=== PATIENT | female | born 1990 | race American Indian/Alaskan Native ===

== ENCOUNTER 2017-07-08 00:18 | Inpatient (IN) | payer OTHER ==
[2017-07-08] MEDS ORDERED: STADOL IV PRN (02:43)
[2017-07-08 03:05] LABS: Hematocrit 34.7 % (30.3-42.9); Hemoglobin 11.8 gm/dl (10.1-14.3); Mean Corpuscular HGB Conc 34 % (30-34); Mean Corpuscular Hemoglobin 31 pg (28-32); Mean Corpuscular Volume 91 fl (79-97); Platelet Count 251 K/mm3 (140-440); Red Blood Count 3.82 M/mm3 (3.65-5.03)
[2017-07-08] MEDS ORDERED: ePHEDrine SULFATE ONE (07:12)
--- NOTE | 2017-07-08 07:12 | Anesthesia Consultation ---
Anesthesia Consult and Med Hx Date of service: 07/08/17 - Airway Anesthetic Teeth Evaluation: Good ROM Head & Neck: Adequate Mental/Hyoid Distance: Adequate Mallampati Class: Class II Intubation Access Assessment: Probably Good - Pre-Operative Health Status ASA Pre-Surgery Classification: ASA2 - Pulmonary Hx Asthma: No COPD: No Hx Pneumonia: No - Cardiovascular System Hx Hypertension: No - Central Nervous System Hx Seizures: No Hx Psychiatric Problems: No - Endocrine Hx Renal Disease: No Hx End Stage Renal Disease: No Hx Hypothyroidism: No Hx Hyperthyroidism: No - Hematic Hx Anemia: No Hx Sickle Cell Disease: No - Other Systems Hx Alcohol Use: No
[2017-07-08] MEDS ORDERED: MARCAINE 0.5% INFILTRATI ONE (07:50)
[2017-07-08] MEDS ORDERED: NARCAN 2 MG/2 ML IV PRN (08:00)
[2017-07-08] MEDS ORDERED: ePHEDrine SULFATE IV PRN (08:00)
[2017-07-08] MEDS: fentaNYL-BUPIV 2 MCG/ML-0.125% 200 MCG/100 ML BAG EPIDURAL SCH ×2 (08:45→16:39)
--- NOTE | 2017-07-08 10:03 | History and Physical Report ---
History of Present Illness Date of examination: 07/08/17 Date of admission: 07/08/17 03:07 Chief complaint: Contractions History of present illness: 27 yo Fe UJNE 07/15/2017 (LMP) 39w 0d presents in spontaneous labor. A positive, Rubella unk, GBS Negative. Pt transfered care to [facility] at 29 wks 1 day from [facility]. care uneventful. 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 denies: smoking, alcohol abuse, prescription drug abuse, IV drug use - Obstetrical History Expected Date of Delivery: 07/15/17 Actual Gestation: 39 Week(s) 0 Day(s) : 2 Para: 0 Hx # Term Pregnancies: 0 Number of Pregnancies: 0 Spontaneous Abortions: 1 Induced : 0 Number of Living Children: 0 Medications and Allergies Allergies Allergy/AdvReac Type Severity Reaction Status Date / Time No Known Allergies Allergy Unverified 07/08/17 00:33 Active Meds: Active Medications Butorphanol Tartrate (Stadol) 2 mg IV Q2H PRN PRN Reason: Labor Pain Last Admin: 07/08/17 03:22 Dose: 2 mg Ephedrine Sulfate (Ephedrine Sulfate) 10 mg IV Q2M PRN PRN Reason: Hypotension Lactated Ringer's (Lactated Ringers) 1,000 mls @ 125 mls/hr IV DIRECT CAPO Fentanyl/Bupivacaine/Sodium Chlor (Fentanyl-Bupiv 2 Mcg/Ml-0.125%) 200 mcg in 100 mls @ 12 mls/hr EPIDURAL TITR CAPO; Protocol Last Admin: 07/08/17 08:45 Dose: 12 mls/hr Naloxone HCl (Narcan 2 Mg/2 Ml) 0.2 mg IV Q5M PRN PRN Reason: Respiratory sedation Review of Systems All systems: negative Cardiovascular: no chest pain, no shortness of breath Respiratory: no shortness of breath Breasts: normal Gastrointestinal: abdominal pain (contractions), no nausea, no vomiting, no diarrhea, no constipation Genitourinary: normal appearance, contractions (regular), no vaginal bleeding, no leakage of fluid, no genital sores Integumentary: no rash, no lesions - Vital Signs Vital signs: Vital Signs Pulse BP Pulse Ox 107 H 123/81 100 07/08/17 00:44 07/08/17 00:44 07/08/17 00:44 Temp Pulse Resp BP Pulse Ox 98.3 F 117 H 20 118/61 99 07/08/17 07:24 07/08/17 09:59 07/08/17 07:24 07/08/17 09:59 07/08/17 09:59 - Physical Exam Cardiovascular: Regular rate, Normal S1, Normal S2 Lungs: Positive: Clear to auscultation, Normal air movement Abdomen: Positive: normal appearance, soft, other (gravid) Genitourinary (Female): Positive: normal external genitalia, normal perenium Vulva: both: normal Vagina: Positive: normal moisture Uterus: Positive: enlarged (Gravid) Anus/Rectum: Positive: normal perianal skin. Negative: hemorrhoids Extremities: Positive: normal Deep Tendon Reflex Grade: Normal +2 - Obstetrical FHR: category 1 Uterine Contraction Monitor Mode: External Cervical Dilatation: 4 (per RN) Uterine Contraction Pattern: Regular Uterine Tone Measurement Phase: Resting Uterine Contraction Intensity: Moderate Results Result Diagrams: 07/08/17 02:50 Abnormal lab results 07/08/17 Range/Units 02:50 RDW 13.0 L (13.2-15.2) % All other labs normal. Assessment and Plan A: ; Term IUP at 39w0d Spontaneous labor Category 1 tracing GBS negative P: Admit to L&D MAy have IV pain med/epidural PRN Anticiapte
[2017-07-08] MEDS: LACTATED RINGERS 1,000 ML IV SCH ×2 (11:59→18:15)
--- NOTE | 2017-07-08 16:36 | Progress Note ---
Assessment and Plan A: ; Term IUP at 39w0d Spontaneous labor Category 1 tracing Comfortable with epidural GBS negative AROM; lg amt clear fluid P: Pitocin Augmentation Anticiapte Subjective - Subjective Date of service: 07/08/17 (16:14) Principal diagnosis: Term IUP, Spontaneous labor Interval history: 27 yo Fe JUNE 07/15/2017 (LMP) 39w 0d presents in spontaneous labor. A positive, Rubella unk, GBS Negative. Pt transfered care to [facility] at 29 wks 1 day from [facility]. care uneventful. Patient reports: movement normal, other (Comfortable with epidural), no new complaints, no vaginal bleeding Objective - Vital Signs Vital Signs: Vital Signs - 12hr 07/08/17 07/08/17 07/08/17 04:42 04:47 04:52 Temperature Pulse Rate 101 H 131 H 108 H Respiratory Rate Blood Pressure Blood Pressure [Right] O2 Sat by Pulse 97 98 98 Oximetry 07/08/17 07/08/17 07/08/17 04:57 05:02 05:07 Temperature Pulse Rate 112 H 111 H 126 H Respiratory Rate Blood Pressure Blood Pressure [Right] O2 Sat by Pulse 98 97 98 Oximetry 07/08/17 07/08/17 07/08/17 05:12 05:17 05:21 Temperature Pulse Rate 113 H 108 H 117 H Respiratory Rate Blood Pressure 155/88 Blood Pressure [Right] O2 Sat by Pulse 100 97 Oximetry 07/08/17 07/08/17 07/08/17 05:22 05:27 05:32 Temperature Pulse Rate 115 H 105 H 110 H Respiratory Rate Blood Pressure Blood Pressure [Right] O2 Sat by Pulse 97 97 97 Oximetry 07/08/17 07/08/17 07/08/17 05:37 05:42 05:47 Temperature Pulse Rate 131 H 122 H 116 H Respiratory Rate Blood Pressure Blood Pressure [Right] O2 Sat by Pulse 98 97 96 Oximetry 07/08/17 07/08/17 07/08/17 05:52 05:57 06:02 Temperature Pulse Rate 91 H 111 H 105 H Respiratory Rate Blood Pressure Blood Pressure [Right] O2 Sat by Pulse 97 97 97 Oximetry 07/08/17 07/08/17 07/08/17 06:07 06:12 06:17 Temperature Pulse Rate 126 H 105 H 123 H Respiratory Rate Blood Pressure Blood Pressure [Right] O2 Sat by Pulse 95 97 97 Oximetry 07/08/17 07/08/17 07/08/17 06:20 06:22 06:27 Temperature Pulse Rate 108 H 120 H 96 H Respiratory Rate Blood Pressure 140/79 Blood Pressure [Right] O2 Sat by Pulse 98 95 Oximetry 07/08/17 07/08/17 07/08/17 06:32 06:37 06:41 Temperature Pulse Rate 112 H 96 H 100 H Respiratory Rate Blood Pressure Blood Pressure [Right] O2 Sat by Pulse 98 97 98 Oximetry 07/08/17 07/08/17 07/08/17 06:47 06:52 06:55 Temperature Pulse Rate 96 H 99 H 98 H Respiratory Rate Blood Pressure Blood Pressure [Right] O2 Sat by Pulse 98 96 94 Oximetry 07/08/17 07/08/17 07/08/17 06:57 07:02 07:07 Temperature 98.7 F Pulse Rate 127 H 105 H 91 H Respiratory 18 Rate Blood Pressure Blood Pressure 140/52 [Right] O2 Sat by Pulse 95 98 96 Oximetry 07/08/17 07/08/17 07/08/17 07:12 07:19 07:21 Temperature Pulse Rate 102 H 94 H 110 H Respiratory Rate Blood Pressure 158/81 Blood Pressure [Right] O2 Sat by Pulse 95 98 Oximetry 07/08/17 07/08/17 07/08/17 07:24 07:29 07:34 Temperature 98.3 F Pulse Rate 98 H 100 H 95 H Respiratory 20 Rate Blood Pressure 133/67 Blood Pressure 133/67 [Right] O2 Sat by Pulse 97 97 96 Oximetry 07/08/17 07/08/17 07/08/17 07:39 07:44 07:49 Temperature Pulse Rate 106 H 119 H 124 H Respiratory Rate Blood Pressure Blood Pressure [Right] O2 Sat by Pulse 97 98 99 Oximetry 07/08/17 07/08/17 07/08/17 07:54 07:59 08:00 Temperature Pulse Rate 93 H 108 H 105 H Respiratory Rate Blood Pressure 124/80 Blood Pressure [Right] O2 Sat by Pulse 99 99 Oximetry 07/08/17 07/08/17 07/08/17 08:04 08:09 08:10 Temperature Pulse Rate 121 H 98 H 103 H Respiratory Rate Blood Pressure 121/70 Blood Pressure [Right] O2 Sat by Pulse 100 100 Oximetry 07/08/17 07/08/17 07/08/17 08:12 08:14 08:16 Temperature Pulse Rate 110 H 105 H 111 H Respiratory Rate Blood Pressure 113/65 115/62 118/61 Blood Pressure [Right] O2 Sat by Pulse 100 Oximetry 07/08/17 07/08/17 07/08/17 08:18 08:19 08:20 Temperature Pulse Rate 89 91 H 98 H Respiratory Rate Blood Pressure 116/59 120/58 Blood Pressure [Right] O2 Sat by Pulse 97 Oximetry 07/08/17 07/08/17 07/08/17 08:22 08:24 08:26 Temperature Pulse Rate 87 95 H 90 Respiratory Rate Blood Pressure 112/59 119/60 120/59 Blood Pressure [Right] O2 Sat by Pulse 97 Oximetry 07/08/17 07/08/17 07/08/17 08:28 08:29 08:30 Temperature Pulse Rate 97 H 96 H 100 H Respiratory Rate Blood Pressure 119/58 124/60 Blood Pressure [Right] O2 Sat by Pulse 97 Oximetry 07/08/17 07/08/17 07/08/17 08:32 08:34 08:36 Temperature Pulse Rate 104 H 96 H 114 H Respiratory Rate Blood Pressure 123/59 110/57 119/57 Blood Pressure [Right] O2 Sat by Pulse 98 Oximetry 07/08/17 07/08/17 07/08/17 08:38 08:39 08:40 Temperature Pulse Rate 99 H 108 H 100 H Respiratory Rate Blood Pressure 124/57 121/60 Blood Pressure [Right] O2 Sat by Pulse 96 Oximetry 07/08/17 07/08/17 07/08/17 08:42 08:44 08:46 Temperature Pulse Rate 100 H 97 H 100 H Respiratory Rate Blood Pressure 106/55 116/58 121/56 Blood Pressure [Right] O2 Sat by Pulse 97 Oximetry 07/08/17 07/08/17 07/08/17 08:48 08:49 08:50 Temperature Pulse Rate 113 H 106 H 100 H Respiratory Rate Blood Pressure 117/56 118/58 Blood Pressure [Right] O2 Sat by Pulse 99 Oximetry 07/08/17 07/08/17 07/08/17 08:52 08:54 08:56 Temperature Pulse Rate 96 H 98 H 100 H Respiratory Rate Blood Pressure 111/55 119/57 120/59 Blood Pressure [Right] O2 Sat by Pulse 98 Oximetry 07/08/17 07/08/17 07/08/17 08:58 08:59 09:00 Temperature Pulse Rate 100 H 106 H 100 H Respiratory Rate Blood Pressure 113/57 119/58 Blood Pressure [Right] O2 Sat by Pulse 98 Oximetry 07/08/17 07/08/17 07/08/17 09:02 09:04 09:08 Temperature Pulse Rate 93 H 102 H 110 H Respiratory Rate Blood Pressure 116/58 115/55 Blood Pressure [Right] O2 Sat by Pulse 97 Oximetry 07/08/17 07/08/17 07/08/17 09:09 09:14 09:19 Temperature Pulse Rate 108 H 108 H 115 H Respiratory Rate Blood Pressure 118/57 120/60 Blood Pressure [Right] O2 Sat by Pulse 99 98 98 Oximetry 07/08/17 07/08/17 07/08/17 09:23 09:24 09:29 Temperature Pulse Rate 110 H 110 H 118 H Respiratory Rate Blood Pressure 120/57 118/58 Blood Pressure [Right] O2 Sat by Pulse 99 97 Oximetry 07/08/17 07/08/17 07/08/17 09:33 09:34 09:38 Temperature Pulse Rate 112 H 112 H 133 H Respiratory Rate Blood Pressure 116/57 111/59 Blood Pressure [Right] O2 Sat by Pulse 98 Oximetry 07/08/17 07/08/17 07/08/17 09:39 09:43 09:44 Temperature Pulse Rate 129 H 122 H 115 H Respiratory Rate Blood Pressure 110/56 Blood Pressure [Right] O2 Sat by Pulse 98 98 Oximetry 07/08/17 07/08/17 07/08/17 09:48 09:49 09:54 Temperature Pulse Rate 144 H 156 H 126 H Respiratory Rate Blood Pressure 104/50 122/58 Blood Pressure [Right] O2 Sat by Pulse 98 99 Oximetry 07/08/17 07/08/17 07/08/17 09:59 10:04 10:08 Temperature Pulse Rate 117 H 120 H 134 H Respiratory Rate Blood Pressure 118/61 113/54 102/54 Blood Pressure [Right] O2 Sat by Pulse 99 99 Oximetry 07/08/17 07/08/17 07/08/17 10:09 10:13 10:14 Temperature Pulse Rate 145 H 118 H 110 H Respiratory Rate Blood Pressure 106/59 Blood Pressure [Right] O2 Sat by Pulse 98 98 Oximetry 07/08/17 07/08/17 07/08/17 10:18 10:19 10:23 Temperature Pulse Rate 139 H 123 H 116 H Respiratory Rate Blood Pressure 104/53 116/57 Blood Pressure [Right] O2 Sat by Pulse 99 Oximetry 07/08/17 07/08/17 07/08/17 10:24 10:29 10:34 Temperature Pulse Rate 120 H 112 H 141 H Respiratory Rate Blood Pressure 106/57 Blood Pressure [Right] O2 Sat by Pulse 97 98 100 Oximetry 07/08/17 07/08/17 07/08/17 10:38 10:39 10:44 Temperature Pulse Rate 110 H 114 H 104 H Respiratory Rate Blood Pressure 99/56 109/57 Blood Pressure [Right] O2 Sat by Pulse 98 98 Oximetry 07/08/17 07/08/17 07/08/17 10:48 10:49 10:54 Temperature Pulse Rate 96 H 98 H 108 H Respiratory Rate Blood Pressure 108/57 106/57 Blood Pressure [Right] O2 Sat by Pulse 98 99 Oximetry 07/08/17 07/08/17 07/08/17 10:59 11:04 11:08 Temperature Pulse Rate 105 H 104 H 116 H Respiratory Rate Blood Pressure 107/56 110/60 104/58 Blood Pressure [Right] O2 Sat by Pulse 98 98 Oximetry 07/08/17 07/08/17 07/08/17 11:09 11:14 11:18 Temperature Pulse Rate 111 H 111 H 114 H Respiratory Rate Blood Pressure 113/56 109/55 Blood Pressure [Right] O2 Sat by Pulse 98 97 Oximetry 07/08/17 07/08/17 07/08/17 11:19 11:23 11:24 Temperature Pulse Rate 116 H 111 H 109 H Respiratory Rate Blood Pressure 109/60 Blood Pressure [Right] O2 Sat by Pulse 98 98 Oximetry 07/08/17 07/08/17 07/08/17 11:28 11:29 11:34 Temperature Pulse Rate 131 H 114 H 121 H Respiratory Rate Blood Pressure 104/59 112/60 Blood Pressure [Right] O2 Sat by Pulse 98 99 Oximetry 07/08/17 07/08/17 07/08/17 11:38 11:39 11:43 Temperature Pulse Rate 118 H 107 H 114 H Respiratory Rate Blood Pressure 113/58 114/61 Blood Pressure [Right] O2 Sat by Pulse 98 Oximetry 07/08/17 07/08/17 07/08/17 11:44 11:48 11:49 Temperature Pulse Rate 114 H 118 H 117 H Respiratory Rate Blood Pressure 108/59 Blood Pressure [Right] O2 Sat by Pulse 98 98 Oximetry 07/08/17 07/08/17 07/08/17 11:54 11:58 11:59 Temperature Pulse Rate 116 H 126 H 116 H Respiratory Rate Blood Pressure 114/59 115/61 Blood Pressure [Right] O2 Sat by Pulse 98 98 Oximetry 07/08/17 07/08/17 07/08/17 12:03 12:04 12:09 Temperature Pulse Rate 117 H 121 H 108 H Respiratory Rate Blood Pressure 108/59 114/60 Blood Pressure [Right] O2 Sat by Pulse 98 96 Oximetry 07/08/17 07/08/17 07/08/17 12:10 12:14 12:15 Temperature 98.7 F Pulse Rate 120 H 107 H 122 H Respiratory 20 Rate Blood Pressure 110/62 Blood Pressure 110/62 [Right] O2 Sat by Pulse 97 97 Oximetry 07/08/17 07/08/17 07/08/17 12:18 12:19 12:23 Temperature Pulse Rate 127 H 126 H 112 H Respiratory Rate Blood Pressure 113/60 112/60 Blood Pressure [Right] O2 Sat by Pulse 98 Oximetry 07/08/17 07/08/17 07/08/17 12:24 12:28 12:29 Temperature Pulse Rate 113 H 109 H 110 H Respiratory Rate Blood Pressure 115/61 Blood Pressure [Right] O2 Sat by Pulse 97 96 Oximetry 07/08/17 07/08/17 07/08/17 12:34 12:38 12:39 Temperature Pulse Rate 115 H 113 H 121 H Respiratory Rate Blood Pressure 116/62 116/62 Blood Pressure [Right] O2 Sat by Pulse 97 96 Oximetry 07/08/17 07/08/17 07/08/17 12:43 12:44 12:48 Temperature Pulse Rate 110 H 113 H 116 H Respiratory Rate Blood Pressure 116/63 109/60 Blood Pressure [Right] O2 Sat by Pulse 97 Oximetry 07/08/17 07/08/17 07/08/17 12:49 12:54 12:58 Temperature Pulse Rate 123 H 121 H 129 H Respiratory Rate Blood Pressure 108/61 110/60 Blood Pressure [Right] O2 Sat by Pulse 97 97 Oximetry 07/08/17 07/08/17 07/08/17 12:59 13:03 13:04 Temperature Pulse Rate 133 H 121 H 120 H Respiratory Rate Blood Pressure 113/60 Blood Pressure [Right] O2 Sat by Pulse 97 97 Oximetry 07/08/17 07/08/17 07/08/17 13:09 13:14 13:19 Temperature Pulse Rate 137 H 137 H 139 H Respiratory Rate Blood Pressure Blood Pressure [Right] O2 Sat by Pulse 98 97 97 Oximetry 07/08/17 07/08/17 07/08/17 13:22 13:24 13:29 Temperature Pulse Rate 134 H 115 H 119 H Respiratory Rate Blood Pressure 117/62 Blood Pressure [Right] O2 Sat by Pulse 97 98 Oximetry 07/08/17 07/08/17 07/08/17 13:34 13:37 13:39 Temperature Pulse Rate 132 H 125 H 118 H Respiratory Rate Blood Pressure 124/68 Blood Pressure [Right] O2 Sat by Pulse 98 97 Oximetry 07/08/17 07/08/17 07/08/17 13:44 13:49 13:52 Temperature Pulse Rate 119 H 112 H 120 H Respiratory Rate Blood Pressure 122/61 Blood Pressure [Right] O2 Sat by Pulse 97 97 Oximetry 07/08/17 07/08/17 07/08/17 13:54 13:59 14:04 Temperature Pulse Rate 117 H 109 H 125 H Respiratory Rate Blood Pressure Blood Pressure [Right] O2 Sat by Pulse 98 96 97 Oximetry 07/08/17 07/08/17 07/08/17 14:07 14:09 14:14 Temperature Pulse Rate 117 H 110 H 121 H Respiratory Rate Blood Pressure 126/63 Blood Pressure [Right] O2 Sat by Pulse 97 97 Oximetry 07/08/17 07/08/17 07/08/17 14:19 14:22 14:24 Temperature Pulse Rate 125 H 121 H 113 H Respiratory Rate Blood Pressure 125/61 Blood Pressure [Right] O2 Sat by Pulse 96 97 Oximetry 07/08/17 07/08/17 07/08/17 14:29 14:34 14:36 Temperature Pulse Rate 131 H 119 H 129 H Respiratory Rate Blood Pressure 120/58 Blood Pressure [Right] O2 Sat by Pulse 97 96 Oximetry 07/08/17 07/08/17 07/08/17 14:39 14:44 14:49 Temperature Pulse Rate 116 H 131 H 133 H Respiratory Rate Blood Pressure Blood Pressure [Right] O2 Sat by Pulse 97 97 98 Oximetry 07/08/17 07/08/17 07/08/17 14:51 14:54 14:59 Temperature Pulse Rate 151 H 127 H 131 H Respiratory Rate Blood Pressure 114/61 Blood Pressure [Right] O2 Sat by Pulse 98 97 Oximetry 07/08/17 07/08/17 07/08/17 15:04 15:08 15:09 Temperature Pulse Rate 131 H 126 H 135 H Respiratory Rate Blood Pressure 115/60 Blood Pressure [Right] O2 Sat by Pulse 97 97 Oximetry 07/08/17 07/08/17 07/08/17 15:14 15:19 15:22 Temperature Pulse Rate 124 H 148 H 122 H Respiratory Rate Blood Pressure 124/65 Blood Pressure [Right] O2 Sat by Pulse 97 97 Oximetry 07/08/17 07/08/17 07/08/17 15:24 15:29 15:34 Temperature Pulse Rate 119 H 125 H 129 H Respiratory Rate Blood Pressure Blood Pressure [Right] O2 Sat by Pulse 97 98 97 Oximetry 07/08/17 07/08/17 07/08/17 15:36 15:39 15:44 Temperature Pulse Rate 125 H 122 H 123 H Respiratory Rate Blood Pressure 129/68 Blood Pressure [Right] O2 Sat by Pulse 97 97 Oximetry 07/08/17 07/08/17 07/08/17 15:49 15:52 15:54 Temperature Pulse Rate 125 H 133 H 124 H Respiratory Rate Blood Pressure 125/67 Blood Pressure [Right] O2 Sat by Pulse 98 97 Oximetry 07/08/17 07/08/17 07/08/17 15:59 16:04 16:07 Temperature Pulse Rate 129 H 126 H 130 H Respiratory Rate Blood Pressure 132/68 Blood Pressure [Right] O2 Sat by Pulse 98 96 Oximetry 07/08/17 07/08/17 07/08/17 16:09 16:14 16:19 Temperature Pulse Rate 125 H 144 H 141 H Respiratory Rate Blood Pressure Blood Pressure [Right] O2 Sat by Pulse 97 98 97 Oximetry 07/08/17 07/08/17 07/08/17 16:21 16:22 16:24 Temperature 99.2 F Pulse Rate 129 H 132 H 135 H Respiratory 18 Rate Blood Pressure 111/80 Blood Pressure 111/80 [Right] O2 Sat by Pulse 97 98 Oximetry 07/08/17 07/08/17 16:29 16:34 Temperature Pulse Rate 125 H 146 H Respiratory Rate Blood Pressure Blood Pressure [Right] O2 Sat by Pulse 97 97 Oximetry - Exam Breasts: deferred Cardiovascular: Regular rate Lungs: Normal air movement Abdomen: Present: other (Gravid) Vulva: both: normal Uterus: Present: other (Gravid; S=D) FHR: auscultation normal, category 1 Uterine Contraction Monitor Mode: External Cervical Dilatation: 9 (AROM; lg amt clear fluid) Cervical Effacement Percentage: 90 station: 0 Uterine Contraction Pattern: Regular Uterine Tone Measurement Phase: Resting Extremities: normal Deep Tendon Reflex Grade: Normal +2 - Labs Labs: Abnormal Labs 07/08/17 02:50 RDW 13.0 L Laboratory Results - last 24 hr 07/08/17 07/08/17 07/08/17 02:50 02:50 02:50 WBC 8.0 RBC 3.82 Hgb 11.8 Hct 34.7 MCV 91 MCH 31 MCHC 34 RDW 13.0 L Plt Count 251 RPR Nonreactive Blood Type A POSITIVE Antibody Screen Negative
[2017-07-08] MEDS ORDERED: PITOCin/NS 30 UNIT/500ML 30 UNITS/500 ML BAG IV SCH (17:00)
[2017-07-08] MEDS ORDERED: PITOCin/NS 20 UNIT/1000ML DRIP 20,000 MILLIUNITS/1,000 ML BAG IV ONE (19:39)
[2017-07-08] MEDS ORDERED: XYLOCAINE 2% INFILTRATI ONE (19:57)
[2017-07-08] MEDS ORDERED: TYLENOL PO PRN (20:23)
[2017-07-08] MEDS ORDERED: DULCOLAX PR PRN (20:23)
[2017-07-08] MEDS ORDERED: BENADRYL PO PRN (20:23)
[2017-07-08] MEDS ORDERED: ZOFRAN IV PRN (20:23)
[2017-07-08] MEDS ORDERED: TUCKS PAD TP PRN (20:23)
[2017-07-08] MEDS ORDERED: MILK OF MAGNESIA PO PRN (20:23)
[2017-07-08] MEDS ORDERED: NORCO 5/325 PO PRN (20:23)
[2017-07-08] MEDS ORDERED: LANSINOH TP PRN (20:23)
[2017-07-08] MEDS ORDERED: PHENERGAN PO PRN (20:23)
--- NOTE | 2017-07-08 20:29 | Procedure Note ---
OB Delivery Note - Delivery Date of Delivery: 07/08/17 (19:55) Surgeon: SHERRI DAVIDSON (BOB) Estimated blood loss: other (150) - Vaginal Delivery presentation: vertex Delivery position: OA Intrapartum events: none Delivery induction: none Delivery augmentation: rupture of membranes, pitocin Delivery monitor: external FHT, external uterine Route of delivery: (19:55) Delivery placenta: spontaneous (20:00) Delivery cord: 3 umbilical vessels Episiotomy: none Delivery laceration: 2nd degree Delivery repair: vicryl (2-0 CT) Anesthesia: local, epidural Delivery comments: viable female under epidural anesthesia, DARA position at 19:55. Infant placed [id number] on maternal abdomen. Delayed cord clamping, then cut by FOB. Spontaneous, bird delivery of intact placenta at 20:00. 3VC. FF@[id number]. 2nd degree perineal laceration repaired under epidural anesthesia and local using 2-[address] Pt toelrated well. EBL 150. Infant and mother left in stable condition in L&D. - Infant A at 1 minute: 8 at 5 minutes: 9 Gender: Female (2874 grams, 6lbs 5oz, 19")
[2017-07-08] MEDS ORDERED: SODIUM CHLORIDE FLUSH SYRINGE 10 ML IV PRN (21:00)
[2017-07-08] MEDS ORDERED: PITOCin/NS 20 UNIT/1000ML DRIP 20 UNITS/1,000 ML BAG IV PRN (21:08)
[2017-07-08] MEDS: MOTRIN PO SCH (23:14)
[2017-07-09] MEDS: MOTRIN PO SCH ×5 (00:25→18:27)
[2017-07-09 09:19] LABS: Hematocrit 27.5 % (30.3-42.9); Hemoglobin 8.9 gm/dl (10.1-14.3)
--- NOTE | 2017-07-09 09:40 | Progress Note ---
Assessment and Plan - Patient Problems (1) (normal spontaneous vaginal delivery) Current Visit: Yes Status: Acute Plan to address problem: PPD 1 - stable Continue routine PP orders Discharge to home in the PM 07/10/17 F/U @ [facility] in 6 wks for PP exam (2) Anemia in puerperium, baby delivered during current episode of care Current Visit: Yes Status: Acute Plan to address problem: Asymptomatic Initiate iron therapy with Ferrous sulfate 325mg PO BID Subjective - Subjective Date of service: 07/09/17 Principal diagnosis: Normal Spontaneous Vaginal Delivery Patient reports: appetite normal, voiding normally, pain well controlled, ambulating normally : doing well, other (breast and bottle feeding) Objective - Vital Signs Latest vital signs: Vital Signs Temp Pulse Resp BP BP Pulse Ox 07/09/17 04:25 98.8 F 106 H 18 117/58 07/09/17 00:00 98.9 F 104 H 18 106/64 07/08/17 22:30 98.2 F 104 H 18 130/85 07/08/17 21:58 107 H 139/79 07/08/17 21:50 98.5 F 107 H 18 139/79 07/08/17 21:22 115 H 135/58 07/08/17 21:06 110 H 134/75 07/08/17 20:51 117 H 135/78 07/08/17 20:50 117 H 18 135/78 07/08/17 20:36 126 H 131/66 07/08/17 20:21 117 H 131/76 07/08/17 20:20 117 H 18 131/76 07/08/17 20:06 123 H 119/70 07/08/17 19:53 137 H 125/67 07/08/17 19:52 134 H 100 07/08/17 19:47 120 H 98 07/08/17 19:41 161 H 99 07/08/17 19:37 136 H 142/79 07/08/17 19:36 133 H 99 07/08/17 19:31 126 H 99 07/08/17 19:26 131 H 99 07/08/17 19:23 131 H 123/68 07/08/17 19:21 138 H 98 07/08/17 19:16 121 H 100 07/08/17 19:11 119 H 100 03/29/18 19:06 117 H 117/74 100 18 19:01 128 H 100 18 18:56 126 H 100 18 18:53 120 H 133/76 18 18:51 118 H 100 18 18:46 118 H 99 18 18:39 134 H 100 18 18:36 121 H 122/69 18 18:34 119 H 100 18 18:29 128 H 100 18 18:24 118 H 100 18 18:21 121 H 120/67 18 18:19 116 H 100 18 18:14 116 H 100 18 18:09 115 H 100 18 18:06 116 H 117/71 18 18:04 114 H 100 18 18:02 110 H 118/64 18 17:59 131 H 98 18 17:58 98.6 F 117 H 18 118/64 100 18 17:54 129 H 98 18 17:51 126 H 115/65 18 17:49 125 H 99 18 17:44 126 H 99 18 17:39 125 H 99 18 17:38 123 H 124/69 18 17:34 122 H 97 18 17:29 124 H 97 18 17:24 142 H 97 18 17:21 129 H 120/69 18 17:19 130 H 98 18 17:14 112 H 96 18 17:09 131 H 96 18 17:07 116 H 113/68 18 17:04 114 H 95 18 16:59 116 H 96 18 16:54 129 H 97 18 16:52 130 H 114/72 18 16:49 122 H 97 18 16:44 133 H 98 18 16:39 131 H 97 18 16:36 123 H 117/73 18 16:34 146 H 97 18 16:29 125 H 97 18 16:24 135 H 98 18 16:22 99.2 F 132 H 18 111/80 97 18 16:21 129 H 111/80 18 16:19 141 H 97 18 16:14 144 H 98 18 16:09 125 H 97 18 16:07 130 H 132/68 18 16:04 126 H 96 18 15:59 129 H 98 18 15:54 124 H 97 18 15:52 133 H 125/67 18 15:49 125 H 98 07/08/17 15:44 123 H 97 07/08/17 15:39 122 H 97 18 15:36 125 H 129/68 18 15:34 129 H 97 18 15:29 125 H 98 07/08/17 15:24 119 H 97 07/08/17 15:22 122 H 124/65 18 15:19 148 H 97 18 15:14 124 H 97 18 15:09 135 H 97 07/08/17 15:08 126 H 115/60 07/08/17 15:04 131 H 97 18 14:59 131 H 97 18 14:54 127 H 98 18 14:51 151 H 114/61 18 14:49 133 H 98 07/08/17 14:44 131 H 97 18 14:39 116 H 97 18 14:36 129 H 120/58 18 14:34 119 H 96 18 14:29 131 H 97 18 14:24 113 H 97 18 14:22 121 H 125/61 18 14:19 125 H 96 18 14:14 121 H 97 18 14:09 110 H 97 18 14:07 117 H 126/63 18 14:04 125 H 97 18 13:59 109 H 96 18 13:54 117 H 98 18 13:52 120 H 122/61 18 13:49 112 H 97 18 13:44 119 H 97 18 13:39 118 H 97 18 13:37 125 H 124/68 18 13:34 132 H 98 18 13:29 119 H 98 18 13:24 115 H 97 18 13:22 134 H 117/62 18 13:19 139 H 97 18 13:14 137 H 97 18 13:09 137 H 98 18 13:04 120 H 97 07/08/17 13:03 121 H 113/60 18 12:59 133 H 97 18 12:58 129 H 110/60 18 12:54 121 H 108/61 97 18 12:49 123 H 97 07/08/17 12:48 116 H 109/60 18 12:44 113 H 97 18 12:43 110 H 116/63 07/08/17 12:39 121 H 96 18 12:38 113 H 116/62 18 12:34 115 H 116/62 97 18 12:29 110 H 96 18 12:28 109 H 115/61 18 12:24 113 H 97 18 12:23 112 H 112/60 18 12:19 126 H 98 18 12:18 127 H 113/60 18 12:15 122 H 110/62 18 12:14 107 H 97 18 12:10 98.7 F 120 H 20 110/62 97 18 12:09 108 H 114/60 96 18 12:04 121 H 98 18 12:03 117 H 108/59 18 11:59 116 H 98 18 11:58 126 H 115/61 18 11:54 116 H 114/59 98 18 11:49 117 H 98 18 11:48 118 H 108/59 03/29/18 11:44 114 H 98 07/08/18 11:43 114 H 114/61 03/29/18 11:39 107 H 98 18 11:38 118 H 113/58 07/08/18 11:34 121 H 112/60 99 29/18 11:29 114 H 98 18 11:28 131 H 104/59 07/08/18 11:24 109 H 98 18 11:23 111 H 109/60 18 11:19 116 H 98 18 11:18 114 H 109/55 18 11:14 111 H 113/56 97 18 11:09 111 H 98 18 11:08 116 H 104/58 18 11:04 104 H 110/60 98 18 10:59 105 H 107/56 98 18 10:54 108 H 106/57 99 18 10:49 98 H 98 18 10:48 96 H 108/57 18 10:44 104 H 109/57 98 07/08/18 10:39 114 H 98 18 10:38 110 H 99/56 03/18 10:34 141 H 106/57 100 18 10:29 112 H 98 18 10:24 120 H 97 18 10:23 116 H 116/57 07/08/18 10:19 123 H 99 18 10:18 139 H 104/53 18 10:14 110 H 98 18 10:13 118 H 106/59 18 10:09 145 H 98 18 10:08 134 H 102/54 0329/18 10:04 120 H 113/54 99 0329/18 09:59 117 H 118/61 99 18 09:54 126 H 122/58 99 29/18 09:49 156 H 98 18 09:48 144 H 104/50 0329/18 09:44 115 H 98 18 09:43 122 H 110/56 18 09:39 129 H 98 Intake and Output 07/08/17 07/09/17 07/09/17 23:59 07:59 15:59 Intake Total 783.333 Output Total 1600 Balance -816.667 Intake: IV 783.333 Lactated Ringers 1,000 ml 783.333 @ 125 mls/hr IV DIRECT CAPO Rx#:[id number] Output: Urine 1600 Void 1600 Other: Total, Output Amount 800 # Voids Void 1 Estimated Blood Loss 150 - Exam Cardiovascular: Present: Regular rate, Normal S1, Normal S2, No murmurs Lungs: Present: Clear to auscultation, Normal air movement Abdomen: Present: normal appearance, soft Vulva: both: laceration/episiotomy (laceration well approximated) Uterus: Present: normal, firm, fundal height below umbilicus Extremities: Present: normal Deep Tendon Reflex Grade: Normal +2 - Labs Labs: Abnormal lab results 07/09/17 Range/Units 08:33 Hgb 8.9 L (10.1-14.3) gm/dl Hct 27.5 L D (30.3-42.9) %
--- NOTE | 2017-07-09 09:48 | Discharge Summary ---
Providers - Providers Date of Admission: 07/08/17 03:07 Date of discharge: 07/10/17 Attending physician: URSZULA SIFUENTES MD Primary care physician: URSZULA SIFUENTES MD Hospitalization Reason for admission: active labor, IUP at term Delivery: Episiotomy: none Laceration: 2nd degree (perineal) Other procedures: none complications: none Discharge diagnosis: IUP at term delivered baby: female Hospital course: Uncomplicated Condition at discharge: Stable Disposition: DC-01 TO HOME OR SELFCARE - Discharge Diagnoses (1) (normal spontaneous vaginal delivery) Status: Acute (2) Anemia in puerperium, baby delivered during current episode of care Status: Acute Comment: Continue Ferrous sulfate 325mg PO BID Plan - Discharge Medications Prescriptions: Ferrous Sulfate [Feosol 325 MG tab] 325 mg PO BID #60 tablet - Provider Discharge Summary Activity: routine, no sex for 6 weeks, no heavy lifting 4 weeks, no strenuous exercise Diet: routine Instructions: routine Additional instructions: [] Smoking cessation referral if applicable(refer to patient education folder for contact #) [] Refer to [facility] Booklet Call your doctor immediately for: * Fever > 100.5 * Heavy vaginal bleeding ( >1 pad per hour) * Severe persistent headache * Shortness of breath * Reddened, hot, painful area to leg or breast * Drainage or odor from incision. * Keep incision clean and dry at all times and follow doctor's instructions regarding bathing/showering - Follow up plan Follow up: URSZULA SIFUENTES MD [Primary Care Provider] - 6 Weeks (F/U at [facility] in 6 weeks for PP exam)
[2017-07-09] MEDS: FEOSOL PO SCH ×2 (11:19→22:18)
[2017-07-09] MEDS ORDERED: DERMOPLAST TP PRN (22:23)
[2017-07-10] MEDS: MOTRIN PO SCH (06:03)
[2017-07-10 10:40] VITALS: BP 114/69
[2017-07-10] MEDS: FEOSOL PO SCH (10:48)
== END 2017-07-10 12:30 | disposition home or self-care (01) | DRG 775 ==
LOC: TRG 00:18 → LD 03:07 → OB 22:28
PROVIDERS: ADMIT Obstetrics & Gynecology; ATTEND Obstetrics & Gynecology
PROC: 10E0XZZ Delivery of Products of Conception, External Approach (ICD-10-PCS; principal; 2017-07-08)
PROC: 0KQM0ZZ Repair Perineum Muscle, Open Approach (ICD-10-PCS; 2017-07-08)
PROC: 10907ZC Drainage of Amniotic Fluid, Therapeutic from Products of Conception, Via Natural or Artificial Opening (ICD-10-PCS; 2017-07-08)
PROC: 3E0R3BZ Introduction of Anesthetic Agent into Spinal Canal, Percutaneous Approach (ICD-10-PCS; 2017-07-08)
PROC: 00HU33Z Insertion of Infusion Device into Spinal Canal, Percutaneous Approach (ICD-10-PCS; 2017-07-08)
DX: O70.1 Second degree perineal laceration during delivery (principal); Z37.0 Single live birth; O99.03 Anemia complicating the puerperium; D64.9 Anemia, unspecified; Z3A.39 39 weeks gestation of pregnancy
CPT/HCPCS: 36415; 85014; 85018; 85027; 86592; 86706; 86762; 86850; 86900; 86901; 99211; G0463; J0595; J2590; J7120

== ENCOUNTER 2020-07-18 14:00 | Outpatient (CLI) | payer SELFPAY ==
[2020-07-18 14:34] VITALS: BP 127/74
[2020-07-18] MEDS ORDERED: LACTATED RINGERS 1,000 ML IV SCH (14:45)
[2020-07-18 15:00] LABS: Bilirubin,Urine NEG (Negative); Blood,Urine NEG (Negative); Color,Urine Yellow (Yellow); Mucus,Urine FEW /HPF; Protein,Urine <15 mg/dL mg/dL (Negative); Urobilinogen,Urine < 2.0 mg/dL (<2.0)
== END 2020-07-18 15:45 | disposition home or self-care (01) ==
LOC: APU 14:00 → TRG 14:00
DX: Z34.82 Encounter for supervision of other normal pregnancy, second trimester (principal); Z3A.22 22 weeks gestation of pregnancy
CPT/HCPCS: 59025; 81001

== ENCOUNTER 2020-11-11 17:48 | Inpatient (IN) | payer MEDICAID ==
--- NOTE | 2020-11-11 18:11 | History and Physical Report ---
History of Present Illness Date of examination: 11/11/20 Date of admission: 11/11/2020 Chief complaint: contractions "since the weekend" History of present illness: Pt reports receiving full care with Dr Adam, denies medical history; records received and reviewed as significant for SABx1 with D&C and NSVDx1 without complications. All labs were performed and WNL. EDC set per early initial US @6wks EGA. Pt seen today in office: VSS, total wt gain 24lbs, and SVE 3-4cm. Past History Past Medical History: no pertinent history Past Surgical History: D&C Family/Genetic History: none Social history: no significant social history - Obstetrical History Expected Date of Delivery: 11/26/20 Actual Gestation: 37 Week(s) 6 Day(s) : 3 Para: 1 Hx # Term Pregnancies: 1 Number of Pregnancies: 0 Spontaneous Abortions: 1 Induced : 0 Number of Living Children: 1 #1 year: (D&C, SAB) Gestational age at delivery: 10 Complications: none #2 Infant Gender: Female year: Birthweight: 6 lb Method of Delivery: Vaginal Gestational age at delivery: 39 Complications: none Medications and Allergies Allergies Allergy/AdvReac Type Severity Reaction Status Date / Time No Known Allergies Allergy Verified 07/18/20 14:40 Home Medications Medication Instructions Recorded Confirmed Last Taken Type One Daily Tablet 1 tab PO DAILY 07/08/17 07/08/17 07/06/17 23:00 History Ferrous Sulfate [Feosol 325 MG tab] 325 mg PO BID #60 tablet 07/09/17 Unknown Rx Review of Systems All systems: negative Gastrointestinal: nausea Genitourinary: contractions - Physical Exam Breasts: Positive: deferred Cardiovascular: Regular rate Lungs: Positive: Normal air movement Abdomen: Positive: normal appearance, soft Genitourinary (Female): Positive: normal external genitalia, normal perenium Vulva: both: normal Vagina: Positive: normal moisture Uterus: Positive: normal size, normal contour Anus/Rectum: Positive: normal perianal skin Extremities: Positive: normal - Obstetrical FHR: auscultation normal, category 1 Uterine Contraction Monitor Mode: External Cervical Dilatation: 8 (per butadiene converter helper) Uterine Contraction Pattern: Regular Uterine Tone Measurement Phase: Contraction Uterine Contraction Intensity: Moderate Results All other labs normal. Lab results per records: GBS NEGATIVE A+ antibody negative rubella immune H&H 13.4/39.9 Platelets 399 RPR negative HbsAG negative HIV negative pap smear negative GC/CT negative AFP negative OGTT 96 Assessment and Plan Turkmen speaking only term pt presents to triage with c/o nausea and contr actions, SVE 8cm per Sherri butadiene converter helper. Pt transferred to labor room and CNM @BS. Records reviewed with pt and orders placed in EMR. Plan: admit to labor; Anticipate . - Patient Problems (1) Active labor at term Current Visit: Yes Status: Acute (2) 37 weeks gestation of Current Visit: Yes Status: Acute
[2020-11-11] MEDS ORDERED: LACTATED RINGERS 1,000 ML ONE (18:16)
[2020-11-11] MEDS ORDERED: NALOXONE 0.4 MG/1 ML INJ IV PRN (18:56)
[2020-11-11] MEDS ORDERED: TERBUTALINE 1 MG/1 ML INJ SUB-Q PRN (18:56)
[2020-11-11] MEDS ORDERED: LIDOCAINE (2%) 20 MG/1 ML VIAL 20 ML MDV INFILTRATI ONE (18:56)
[2020-11-11] MEDS ORDERED: CARBOPROST TROMETHAMINE 250 MCG/1 ML INJ IM PRN (18:56)
[2020-11-11] MEDS ORDERED: METHYLERGONOVINE MALEATE 0.2 MG/ML VIAL IM PRN (18:56)
[2020-11-11] MEDS ORDERED: BUTORPHANOL 2 MG/1 ML INJ IV PRN (18:56)
[2020-11-11] MEDS ORDERED: ACETAMINOPHEN 325 MG TAB PO PRN (18:56)
[2020-11-11] MEDS ORDERED: ONDANSETRON 4 MG/2 ML INJ IV PRN (18:56)
[2020-11-11] MEDS ORDERED: ePHEDrine SULFATE 50 MG/1 ML INJ IV PRN ×2 (18:56→20:04)
[2020-11-11] MEDS ORDERED: OXYTOCIN 10 UNIT/1 ML INJ IM PRN (18:56)
[2020-11-11] MEDS ORDERED: LOPERAMIDE 2 MG CAP PO PRN (18:56)
[2020-11-11] MEDS ORDERED: MINERAL OIL 30 ML ORAL LIQD PO PRN (18:56)
[2020-11-11] MEDS ORDERED: miSOPROStol 200 MCG TAB PR PRN (18:56)
[2020-11-11] MEDS ORDERED: LACTATED RINGERS 1,000 ML IV SCH (19:00)
[2020-11-11] MEDS ORDERED: OXYTOCIN DRIP 30 UNITS/500 ML BAG IV SCH (19:00)
[2020-11-11 19:09] LABS: Hematocrit 37.8 % (30.3-42.9); Hemoglobin 13.6 gm/dl (10.1-14.3); Mean Corpuscular HGB Conc 36 % (30-34); Mean Corpuscular Volume 93 fl (79-97); Platelet Count 234 K/mm3 (140-440); Red Blood Count 4.05 M/mm3 (3.65-5.03); Red Cell Distribution Width 12.6 % (13.2-15.2)
[2020-11-11] MEDS ORDERED: NALOXONE 2 MG/2 ML INJ IV PRN (20:04)
--- NOTE | 2020-11-11 20:09 | Anesthesia Consultation ---
Anesthesia Consult and Med Hx Date of service: 11/11/20 - Airway Anesthetic Teeth Evaluation: Poor ROM Head & Neck: Adequate Mental/Hyoid Distance: Adequate Mallampati Class: Class II Intubation Access Assessment: Probably Good - Pulmonary Exam CTA: Yes - Cardiac Exam Cardiac Exam: RRR - Pre-Operative Health Status ASA Pre-Surgery Classification: ASA2 Proposed Anesthetic Plan: Epidural - Pulmonary Hx Smoking: No Hx Asthma: No Hx Respiratory Symptoms: No SOB: No COPD: No Home Oxygen Therapy: No Hx Pneumonia: No Hx Sleep Apnea: No - Cardiovascular System Hx Hypertension: No Hx Coronary Artery Disease: No Hx Heart Attack/AMI: No Hx Angina: No Hx Percutaneous Transluminal Coronary Angioplasty (PTCA): No Hx Cardia Arrhythmia: No Hx Pacemaker: No Hx Internal Defibrillator: No Hx Valvular Heart Disease: No Hx Heart Murmur: No Hx Peripheral Vascular Disease: No - Central Nervous System Hx Neuromuscular Disorder: No Hx Seizures: No CVA: No Hx Back Pain: Yes Hx Psychiatric Problems: No - Gastrointestinal Hx Ulcer: No Hx Gastroesophageal Reflux Disease: Yes - Endocrine Hx Renal Disease: No Hx End Stage Renal Disease: No Hx Cirrhosis: No Hx Liver Disease: No Hx Insulin Dependent Diabetes: No Hx Non-Insulin Dependent Diabetes: No Hx Thyroid Disease: No Hx Hypothyroidism: No Hx Hyperthyroidism: No - Hematic Hx Anemia: No Hx Sickle Cell Disease: No - Other Systems Hx Alcohol Use: No Hx Substance Use: No Hx Cancer: No Hx Obesity: Yes
--- NOTE | 2020-11-11 20:18 | Progress Note ---
Labor Epidural - Labor Epidural Start Time: 19:45 Stop Time: 19:58 Performed by:: YARI KIMBROUGH Procedure: Patient is requesting a laboring epidural for laboring pain. Patient IDed, H&P reviewed, all questions and concerns were answered, and consent was signed. Timeout was performed at bedside. Patient in sitting position. Sterile prep and drape was performed. [3] ml of 1% lidocaine skin wheal at L[3]- L [4]. 18- gauge Elizabeth epidural needle was advanced to loss of resistance with saline technique 6cm. Negative CSF negative blood. Epidural catheter advanced to [10] centimeters. [NEGATIVE] Aspiration [NEGATIVE] test dose. Sterile dressing applied. Patient tolerated procedure.
[2020-11-11] MEDS ORDERED: fentaNYL-BUPIV 2 MCG/ML-0.125% 200 MCG/100 ML BAG EPIDURAL ONE (20:20)
[2020-11-11] MEDS ORDERED: fentaNYL-BUPIV 2 MCG/ML-0.125% 200 MCG/100 ML BAG EPIDURAL SCH (21:00)
[2020-11-11] MEDS ORDERED: ceFAZolin/Water 2 GM/20 ML 2 GM/20 ML SYRINGE IV NR (22:18)
[2020-11-11] MEDS ORDERED: ceFAZolin/NS 1 GM/50 ML 1 GM/50 ML BAG IV ONE (22:56)
[2020-11-11] MEDS ORDERED: SODIUM CHLORIDE IV ONE (22:58)
[2020-11-11] MEDS ORDERED: CEFAZOLIN IV ONE (22:58)
--- NOTE | 2020-11-11 23:15 | Event Note ---
Date: 11/11/20 at 37.6wks by EDC 11/26/20 in records from clinic covered by [facility]. Pt came in active labor speaking canadian only. H and P done by professional builder team until pt showed records and stated in Nepali that her clinic was covered by [facility] confirmed when I called Amina Reyes, high pressure firer or [facility]. Pt admitted to movement, denied vag bleed or leakage of fluid and pt already received epidural for painful contractions. records with Blood type A positive, neg ab screen, rubella immune, RPR neg, HIV neg and HepBsAg negative. GC/chlamydia neg normal 1hrgtt and GBS negative. Pt oriented x3, abd soft and non-tender gravid, no vaginal lesions. FHR category I and pt with adequate contractions. AROM done clear fluid at 22:05pm with pelvic 10/100/0 station and clear amniotic fluid seen. Expect I Appreciate professional builder team for the initial eval and management of this patient
--- NOTE | 2020-11-11 23:20 | Procedure Note ---
OB Delivery Note - Delivery Date of Delivery: 11/11/20 Surgeon: JILLIAN WILSON Estimated blood loss: other (400) - Vaginal Delivery presentation: vertex Delivery position: OA Delivery induction: none Delivery augmentation: rupture of membranes Delivery monitor: external FHT, external uterine Route of delivery: Delivery placenta: spontaneous Delivery laceration: 2nd degree (midline with previous vaginovaginal fistula noted as pt was pushing) Delivery repair: vicryl, chromic Anesthesia: epidural Delivery comments: SAVD of viable male and placenta delivered spontaneously complete with 3vessel cord. Pt sustained 2nd degree midline perineal laceration through the previous shallow vaginovaginal fistula less than 2mm. The fistula was excised in a vertical ellipical fashion with verbal consent from patient and laceration repaired using interrupted 3-0 vicryl and 2-0 chromic running locked suture. Anal sphincter intact. Pt had continuous soft stool during delivery that contaminated wound hence ancef given IV 2gram post delivery. Pt instructed to avoid tub baths so that sutures placed will not dissolve prior to 3wks. Mom and baby stable. QBL to be done by the nurse - A at 1 minute: 8 at 5 minutes: 9 Infant Gender: Male (wt 3120g; clear amniotic fluid)
[2020-11-12] MEDS: oxyCODONE /ACETAMINOPHEN 5-325MG TAB PO PRN ×2 (09:53→20:53)
[2020-11-12] MEDS: IBUPROFEN 600 MG TAB PO SCH ×3 (09:53→22:54)
[2020-11-12] MEDS ORDERED: LANOLIN/ZINC/DIMETHICONE (LANSINOH) 7 GM TP PRN (10:00)
[2020-11-12] MEDS ORDERED: PROMETHAZINE 25 MG RECT SUPP PR PRN (10:00)
[2020-11-12] MEDS ORDERED: WITCH HAZEL/ GLYCERIN PAD TP PRN (10:00)
[2020-11-12] MEDS ORDERED: diphenhydrAMINE 25 MG CAP PO PRN (10:00)
[2020-11-12] MEDS ORDERED: ACETAMINOPHEN 325 MG TAB PO PRN (10:00)
[2020-11-12] MEDS ORDERED: PRENATAL VIT27-FE FUMARATE-FOLIC ACID VIT TAB PO SCH (10:00)
[2020-11-12] MEDS ORDERED: PROMETHAZINE 25 MG TAB PO PRN (10:00)
[2020-11-12] MEDS ORDERED: ONDANSETRON 4 MG/2 ML INJ IV PRN (10:00)
--- NOTE | 2020-11-12 10:44 | Progress Note ---
Assessment and Plan A: S/P P: Continue routine pp orders D/C home tomm if stable Subjective - Subjective Date of service: 11/12/20 Principal diagnosis: s/p Patient reports: appetite normal, voiding normally, pain well controlled, flatus, ambulating normally [place]: doing well, bottle feeding Objective - Vital Signs Latest vital signs: Vital Signs Temp Pulse Resp BP Pulse Ox Pulse Ox 11/12/20 08:06 98.2 F 97 H 20 128/76 97 11/12/20 05:37 99.0 F 109 H 20 120/74 97 11/12/20 00:40 99 11/12/20 00:15 92 H 122/72 11/12/20 00:12 97.9 F 18 11/12/20 00:01 100 H 116/73 11/11/20 23:30 107 H 107/83 11/11/20 23:23 109 H 100 11/11/20 23:18 105 H 100 11/11/20 23:15 90 125/73 11/11/20 23:13 90 100 11/11/20 23:08 93 H 117/58 100 11/11/20 23:03 81 98 11/11/20 23:00 100 H 118/54 11/11/20 22:58 97 H 100 11/11/20 22:57 41 L 11/11/20 22:53 94 H 100 11/11/20 22:52 45 L 11/11/20 22:47 79 79 L 11/11/20 22:45 96 H 125/59 11/11/20 22:43 108 H 100 11/11/20 22:41 103 H 91 11/11/20 22:38 89 100 11/11/20 22:33 93 H 100 11/11/20 22:29 190 H 113/77 11/11/20 22:28 103 H 100 11/11/20 22:26 97.9 F 11/11/20 22:23 102 H 100 11/11/20 22:18 93 H 100 11/11/20 22:13 109 H 100 11/11/20 22:12 79 125/79 11/11/20 22:09 101 H 117/68 11/11/20 22:08 109 H 100 11/11/20 22:07 104 H 114/65 11/11/20 22:06 103 H 117/57 08/02/21 22:04 121 H 114/64 11/11/20 22:03 111 H 100 11/11/20 22:01 106 H 112/65 11/11/20 21:59 106 H 112/64 11/11/20 21:58 107 H 100 11/11/20 21:57 104 H 118/66 11/11/20 21:55 108 H 120/67 11/11/20 21:53 104 H 119/64 100 11/11/20 21:51 104 H 119/60 11/11/20 21:50 113 H 119/56 11/11/20 21:48 107 H 156/70 100 11/11/20 21:45 117 H 99/57 11/11/20 21:43 99 H 101/63 98 11/11/20 21:41 95 H 100/61 11/11/20 21:39 97 H 102/61 11/11/20 21:38 91 H 99 11/11/20 21:37 93 H 105/62 11/11/20 21:35 91 H 108/62 11/11/20 21:33 92 H 109/63 98 11/11/20 21:31 96 H 113/65 11/11/20 21:30 93 H 115/65 11/11/20 21:28 98 H 99 11/11/20 21:27 93 H 110/59 11/11/20 21:25 96 H 114/65 11/11/20 21:23 99 H 110/63 11/11/20 21:22 99 H 99 11/11/20 21:21 96 H 115/66 11/11/20 21:19 97 H 115/66 11/11/20 21:17 100 H 112/65 11/11/20 21:16 100 H 98 11/11/20 21:15 93 H 115/59 11/11/20 21:14 100 H 129/68 11/11/20 21:11 94 H 110/58 11/11/20 21:10 101 H 99 11/11/20 21:09 96 H 117/64 11/11/20 21:07 95 H 113/64 11/11/20 21:05 93 H 118/70 11/11/20 21:04 96 H 120/72 99 11/11/20 21:01 93 H 118/59 11/11/20 20:59 102 H 117/67 100 11/11/20 20:57 100 H 116/65 11/11/20 20:55 91 H 114/62 11/11/20 20:54 116 H 99 11/11/20 20:53 96 H 120/68 11/11/20 20:51 95 H 113/57 11/11/20 20:49 95 H 117/55 100 11/11/20 20:47 104 H 116/62 11/11/20 20:45 94 H 109/62 11/11/20 20:44 101 H 121/61 100 11/11/20 20:42 96.8 F L 105 H 18 100 11/11/20 20:41 100 H 133/77 11/11/20 20:39 109 H 133/77 100 11/11/20 20:37 121 H 135/78 11/11/20 20:35 100 H 137/75 11/11/20 20:34 99 H 143/81 100 11/11/20 20:31 116 H 131/81 11/11/20 20:29 103 H 123/81 99 11/11/20 20:27 114 H 128/81 11/11/20 20:25 96 H 123/74 11/11/20 20:24 95 H 18 134/81 100 11/11/20 20:23 100 H 134/81 11/11/20 20:21 92 H 136/85 11/11/20 20:19 109 H 133/85 100 11/11/20 20:17 100 H 123/72 11/11/20 20:15 107 H 133/84 11/11/20 20:14 107 H 100 11/11/20 20:13 98 H 119/76 11/11/20 20:11 105 H 129/81 11/11/20 20:09 110 H 133/86 11/11/20 20:08 116 H 100 11/11/20 20:07 100 H 124/77 11/11/20 20:05 104 H 128/79 11/11/20 20:03 99 H 135/77 11/11/20 20:02 115 H 131/73 99 11/11/20 20:00 109 H 150/94 11/11/20 19:57 113 H 153/84 11/11/20 19:56 104 H 100 08/02/21 19:55 144 H 148/81 11/11/20 19:53 126 H 149/84 11/11/20 19:51 119 H 157/87 100 11/11/20 19:49 120 H 147/84 11/11/20 19:48 133 H 144/91 11/11/20 19:46 135 H 100 11/11/20 19:45 121 H 139/86 11/11/20 19:41 123 H 100 11/11/20 19:36 124 H 100 11/11/20 19:31 131 H 100 11/11/20 19:18 99 11/11/20 19:13 115 H 100 11/11/20 19:10 120 H 142/70 11/11/20 18:37 130 H 136/79 11/11/20 18:35 98.8 F Intake and Output 11/11/20 11/12/20 11/12/20 22:59 06:59 14:59 Intake Total 240 Output Total 400 900 Balance -400 -900 240 Intake: Oral 240 Output: Urine 400 900 Indwelling Catheter 400 Straight 800 Void 100 Other: Total, Intake Amount 240 Total, Output Amount 400 100 # Voids Void 1 Weight 161 lb Estimated Blood Loss 400 - Exam Breasts: Present: normal Abdomen: Present: normal appearance, soft, normal bowel sounds Vulva: both: normal Uterus: Present: normal, firm, fundal height below umbilicus Extremities: Present: normal Incision: Present: normal, intact - Labs Labs: Abnormal lab results 11/11/20 Range/Units 18:10 MCH 34 H (28-32) pg MCHC 36 H (30-34) % RDW 12.6 L (13.2-15.2) %
--- NOTE | 2020-11-12 10:49 | Discharge Summary ---
Providers - Providers Date of Admission: 11/11/20 18:56 Date of discharge: 11/13/20 Attending physician: JILLIAN WILSON 11/11/20 18:59 Consult to Case Management [CONS] Routine Services Needed at Discharge: [place] Supervisor Comment:: walk-in, french speaking only Primary care physician: JILLIAN WILSON Hospitalization Reason for admission: active labor, IUP at term Delivery: Episiotomy: none Laceration: 2nd degree Incision: normal, intact Other procedures: none complications: none Discharge diagnosis: IUP at term delivered [place] baby: male Hospital course: Pt was admitted in active labor and had a precipitous . No pp complications were noted. See h&p, delivery summary, and pp notes. Condition at discharge: Stable Disposition: DC- TO HOME OR SELFCARE Plan - Discharge Medications Prescriptions: Ibuprofen [Motrin 600 MG tab] 600 mg PO Q6H #30 tablet - Provider Discharge Summary Activity: routine, no sex for 6 weeks, no heavy lifting 4 weeks, no strenuous exercise Diet: routine Instructions: routine Additional instructions: [] Smoking cessation referral if applicable(refer to patient education folder for contact #) [] Refer to [facility]'s [facility] Booklet Call your doctor immediately for: * Fever > 100.5 * Heavy vaginal bleeding ( >1 pad per hour) * Severe persistent headache * Shortness of breath * Reddened, hot, painful area to leg or breast * Drainage or odor from incision. * Keep incision clean and dry at all times and follow doctor's instructions regarding bathing/showering - Follow up plan Follow up: JILLIAN WILSON MD [Primary Care Provider] - 6 Weeks
--- NOTE | 2020-11-12 13:37 | Post Anesthesia Evaluation ---
- Post Anesthesia Evaluation Patient Participated: Yes Airway Patent: Yes Stable Respiratory Function: Yes Nausea/Vomiting: No Temp > 96.8F: Yes Pain Manageable: Yes Adequeate Hydration: Yes Anesthesia Complications: No Block Receding Appropriately: Yes Patient on Ventilator: No
[2020-11-12 16:34] LABS: Hematocrit 31.8 % (30.3-42.9); Hemoglobin 10.9 gm/dl (10.1-14.3)
[2020-11-12] MEDS ORDERED: MAGNESIUM HYDROXIDE (MOM) ORAL LIQD UDC PO PRN (22:00)
[2020-11-13] MEDS: IBUPROFEN 600 MG TAB PO SCH (04:18)
[2020-11-13 12:04] VITALS: BP 111/63
== END 2020-11-13 12:35 | disposition home or self-care (01) | DRG 807 ==
LOC: TRG 17:48 → APU 17:51 → LD 17:57 → TRG 18:56 → OB 11-12 00:50
PROVIDERS: ADMIT Obstetrics & Gynecology; ATTEND Obstetrics & Gynecology
PROC: 10E0XZZ Delivery of Products of Conception, External Approach (ICD-10-PCS; principal; 2020-11-11)
PROC: 0KQM0ZZ Repair Perineum Muscle, Open Approach (ICD-10-PCS; 2020-11-11)
PROC: 3E0R3BZ Introduction of Anesthetic Agent into Spinal Canal, Percutaneous Approach (ICD-10-PCS; 2020-11-11)
PROC: 00HU33Z Insertion of Infusion Device into Spinal Canal, Percutaneous Approach (ICD-10-PCS; 2020-11-11)
PROC: 10907ZC Drainage of Amniotic Fluid, Therapeutic from Products of Conception, Via Natural or Artificial Opening (ICD-10-PCS; 2020-11-11)
DX: O99.62 Diseases of the digestive system complicating childbirth (principal); Z37.0 Single live birth; O70.1 Second degree perineal laceration during delivery; Z20.822 Contact with and (suspected) exposure to COVID-19; K21.9 Gastro-esophageal reflux disease without esophagitis; Z79.899 Other long term (current) drug therapy; Z3A.37 37 weeks gestation of pregnancy
CPT/HCPCS: 36415; 59025; 85014; 85018; 85027; 86592; 86850; 86900; 86901; 99211; G0378; G0463; J0690; J2590; J7120; U0003